=== PATIENT | male | born 1965 | race Caucasian/White ===

== ENCOUNTER → 2017-01-20 | Outpatient (CLI) | payer OTHER ==
--- NOTE | 2017-01-20 15:02 | XR ---
Cervical spine HISTORY: Painful tingling in arms, inflammatory polyneuropathy 5 views of the cervical spine Cervical vertebral bodies show preserved height, alignment, and bone mineralization. Disc spaces and prevertebral soft tissues are maintained. No significant foraminal encroachment. IMPRESSION: No significant abnormality, consider cervical MRI.
== END | disposition home or self-care (01) ==
LOC: RADXRMAIN 13:18
PROVIDERS: ATTEND Family Medicine
DX: G61.9 Inflammatory polyneuropathy, unspecified (principal)
CPT/HCPCS: 72050

== ENCOUNTER 2017-01-21 06:49 | Day surgery (SDC) | payer OTHER ==
[2017-01-16 11:17] VITALS: BMI 34.7
[~2017-01-21 06:49] MED LIST: LACTATED RINGERS 1,000 ML IV SCH
[2017-01-21] MEDS ORDERED: LIDOCAINE 1% 20 ML VIAL (10MG/ML) FOR IV START INTRADERMA ONE (07:40)
[2017-01-21 07:45] VITALS: TEMP 97.5
[2017-01-21] MEDS ORDERED: PROPOFOL 10 MG/ML 20 ML VIAL IV ONE (07:48)
[2017-01-21] MEDS ORDERED: LIDOCAINE 1% INJ 10MG/ML (20 ML MDV) ONE (07:48)
--- NOTE | 2017-01-21 07:48 | P.GSHP ---
History of Present Illness H&P Date: 01/21/17 Chief Complaint: Screening colonoscopy This a 51-year-old male from Dr. Castro. Patient presents today for screening colonoscopy. He denies any significant GI complaints. - Constitutional Constitutional: Reports as per HPI Past Medical History Past Medical History: Chest Pain / Angina, Hyperlipidemia, Hypertension, Myocardial Infarction ([place]) Additional Past Medical History / Comment(s): [place] x2 Last Myocardial Infarction Date:: 2015 History of Any Multi-Drug Resistant Organisms: None Reported Past Surgical History: Appendectomy, Heart Catheterization With Stent, Orthopedic Surgery Additional Past Surgical History / Comment(s): 3 stents placed in 2014, last heart stent 2015, tendon surgery- arm. Past Anesthesia/Blood Transfusion Reactions: No Reported Reaction Date of Last Stent Placement:: 2015 Past Psychological History: No Psychological Hx Reported Smoking Status: Former smoker Past Alcohol Use History: Occasional Additional Past Alcohol Use History / Comment(s): Quit smoking in 2000. Smoked 1 PPD x 16 yrs. Past Drug Use History: None Reported - Past Family History Mother Family Medical History: No Reported History Medications and Allergies Home Medications Medication Instructions Recorded Confirmed Type Atorvastatin [Lipitor] 80 mg PO DAILY 03/13/15 01/21/17 History Nitroglycerin Sl Tabs [Nitrostat] 0 mg SUBLINGUAL DIRECTED PRN 03/13/1501/16 History Metoprolol Tartrate [Lopressor] 25 mg PO DAILY 01/16/17 01/21/17 History Allergies Allergy/AdvReac Type Severity Reaction Status Date / Time meperidine HCl [From Demerol] Allergy Confusion Verified 01/21/17 07:30 Surgical - Exam Vital Signs Temp Pulse Resp BP Pulse Ox 97.5 F L 74 18 114/73 97 01/21/17 07:43 01/21/17 07:43 01/21/17 07:43 01/21/17 07:43 01/21/17 07:43 - General well developed, no distress - Eyes PERRL - ENT normal pinna - Neck no masses - Respiratory normal expansion - Cardiovascular Rhythm: regular - Abdomen Abdomen: soft, non tender Assessment and Plan Plan: We'll perform screening colonoscopy.
--- NOTE | 2017-01-21 08:03 | P.OP ---
Date of Procedure: 01/21/17 Preoperative Diagnosis: Screening colonoscopy Postoperative Diagnosis: Right colon polyp Procedure(s) Performed: Colonoscopy Anesthesia: MAC Surgeon: Everardo Goodrich Pathology: other (Right colon polyp) Condition: stable Disposition: PACU Description of Procedure: The patient's placed on the endoscopy table in the lateral position. He received IV sedation. Digital rectal exam was performed which revealed a few external hemorrhoids. The flexible colonoscope was then placed patient anus passed throughout the entire colon. The ileocecal valve was visualized. Cecum , ascending colon appeared normal. Near the hepatic flexure of the ascending colon there was a small polyp seen this removed the forcep. The remainder of the transverse colon descending colon and sigmoid colon appeared normal. The rectum was normal. The scope was withdrawn and the external hemorrhoids were visualized. Scope was withdrawn for patient.
[2017-01-21 08:20] VITALS: BP 128/78; PULSE 66; RESP 16
== END 2017-01-21 08:49 | disposition home or self-care (01) ==
LOC: ORWHC2ENDO 06:49
PROVIDERS: ATTEND Surgery
DX: Z12.11 Encounter for screening for malignant neoplasm of colon (principal); D12.2 Benign neoplasm of ascending colon; K64.4 Residual hemorrhoidal skin tags; E78.5 Hyperlipidemia, unspecified; I20.9 Angina pectoris, unspecified; I10 Essential (primary) hypertension; I25.2 Old myocardial infarction; Z87.891 Personal history of nicotine dependence; Z79.899 Other long term (current) drug therapy; Z88.5 Allergy status to narcotic agent
CPT/HCPCS: 88305; 45380; J2001; J2704

== ENCOUNTER 2017-01-26 14:46 | Emergency (ER) | payer OTHER ==
[2017-01-26] MEDS ORDERED: SODIUM CHLORIDE 0.9% 2,000 ML IV STA (15:01)
[2017-01-26] MEDS ORDERED: SODIUM CHLORIDE 0.9% 1,000 ML IV STA (15:01)
[2017-01-26] MEDS ORDERED: ONDANSETRON 4 MG/2 ML VIAL IVP STA (15:01)
--- NOTE | 2017-01-26 15:07 | ED ---
Nausea/Vomiting/Diarrhea HPI - General Chief complaint: Nausea/Vomiting/Diarrhea Stated complaint: feeling ill since colonoscopy Time Seen by Provider: 01/26/17 14:50 Source: patient, RN notes reviewed Mode of arrival: wheelchair Limitations: no limitations - History of Present Illness Initial comments: This is a 51-year-old male presents with complaints of headache and stuffy nose and sinuses nausea chills sweats generalized weakness lightheadedness and dizziness. He states all the symptoms started 2 days after having colonoscopy which was 5 days ago. Today after colonoscopy was fine to the symptoms began on the following day. He has had some rhinorrhea no phlegm production dry heaves he's been able to keep some fluids down but no oral intake of food for last 3 days. No overt abdominal pain. He just generally does not feel well he also suffers some body aches. He states he's had diarrhea every 15-30 minutes he states is a yellow-green jacobo color. No recent antibiotics. He did have a polyp that was removed during the colonoscopy was said to be benign. MD complaint: nausea, diarrhea - Related Data Home Medications Medication Instructions Recorded Confirmed Atorvastatin [Lipitor] 80 mg PO DAILY 03/13/15 01/26/17 Nitroglycerin Sl Tabs [Nitrostat] 0.4 mg SUBLINGUAL Q5M PRN 03/13/15 01/26/17 Metoprolol Tartrate [Lopressor] 25 mg PO DAILY 01/16/17 01/26/17 Desvenlafaxine Succinate [Pristiq] 50 mg PO DAILY 01/26/17 01/26/17 Isosorbide Mononitrate ER [Imdur] 30 mg PO DAILY 01/26/17 01/26/17 Previous Rx's Medication Instructions Recorded Clopidogrel [Plavix] 75 mg PO DAILY #30 tab 05/02/16 Lisinopril [Zestril] 10 mg PO DAILY #30 tab 05/02/16 Oseltamivir [Tamiflu] 75 mg PO Q12HR #10 cap 01/26/17 Allergies Allergy/AdvReac Type Severity Reaction Status Date / Time meperidine HCl [From Demerol] Allergy Confusion Verified 01/26/17 15:05 Review of Systems ROS Statement: Those systems with pertinent positive or pertinent negative responses have been documented in the HPI. ROS Other: All systems not noted in ROS Statement are negative. Past Medical History Past Medical History: Chest Pain / Angina, Hyperlipidemia, Hypertension, Myocardial Infarction ([place]) Additional Past Medical History / Comment(s): [place] x2 Last Myocardial Infarction Date:: 2015 History of Any Multi-Drug Resistant Organisms: None Reported Past Surgical History: Appendectomy, Heart Catheterization With Stent, Orthopedic Surgery Additional Past Surgical History / Comment(s): 3 stents placed in 2014, last heart stent 2016, tendon surgery- arm. Past Anesthesia/Blood Transfusion Reactions: No Reported Reaction Date of Last Stent Placement:: 2015 Past Psychological History: No Psychological Hx Reported Smoking Status: Former smoker Past Alcohol Use History: Occasional Additional Past Alcohol Use History / Comment(s): Quit smoking in 2000. Smoked 1 PPD x 16 yrs. Past Drug Use History: None Reported - Past Family History Mother Family Medical History: No Reported History General Exam - General Exam Comments Initial Comments: This is a well-developed well-nourished awake alert oriented 3 male Limitations: no limitations General appearance: anxious, in distress Head exam: Present: atraumatic, normocephalic, normal inspection Eye exam: Present: normal appearance, PERRL, EOMI. Absent: scleral icterus, conjunctival injection, periorbital swelling ENT exam: Present: mucous membranes dry, other (Boggy nasal mucosa) Neck exam: Present: normal inspection. Absent: tenderness, meningismus, lymphadenopathy Respiratory exam: Present: normal lung sounds bilaterally. Absent: respiratory distress, wheezes, rales, rhonchi, stridor Cardiovascular Exam: Present: normal rhythm, tachycardia, normal heart sounds. Absent: systolic murmur, diastolic murmur, rubs, gallop, clicks GI/Abdominal exam: Present: soft, normal bowel sounds. Absent: distended, tenderness, guarding, rebound, rigid Extremities exam: Present: normal inspection, full ROM, normal capillary refill. Absent: tenderness, pedal edema, joint swelling, calf tenderness Back exam: Present: normal inspection Neurological exam: Present: alert, oriented X3, CN II-XII intact Psychiatric exam: Present: normal affect, normal mood Skin exam: Present: warm, dry, intact, normal color. Absent: rash Course Vital Signs 01/26/17 01/26/17 14:49 18:40 Temperature 96.7 F L 98.7 F Pulse Rate 112 H 77 Respiratory 24 18 Rate Blood Pressure 122/84 139/83 O2 Sat by Pulse 99 100 Oximetry Medical Decision Making - Medical Decision Making Patient is feeling much improved he will be discharged he'll be placed on Tamiflu he was advised to increase his oral fluids also follow-up with his doctor and return when necessary - Lab Data Result diagrams: 01/26/17 15:12 01/26/17 15:12 Lab Results 01/26/17 01/26/17 01/26/17 Range/Units 15:12 15:12 15:12 WBC 7.5 (3.8-10.6) k/uL RBC 5.84 (4.30-5.90) m/uL Hgb 19.0 H (13.0-17.5) gm/dL Hct 56.2 H (39.0-53.0) % MCV 96.3 (80.0-100.0) fL MCH 32.6 (25.0-35.0) pg MCHC 33.9 (31.0-37.0) g/dL RDW 13.1 (11.5-15.5) % Plt Count 286 (150-450) k/uL Neutrophils % 71 % Lymphocytes % 17 % Monocytes % 8 % Eosinophils % 0 % Basophils % 1 % Neutrophils # 5.3 (1.3-7.7) k/uL Lymphocytes # 1.3 (1.0-4.8) k/uL Monocytes # 0.6 (0-1.0) k/uL Eosinophils # 0.0 (0-0.7) k/uL Basophils # 0.0 (0-0.2) k/uL Sodium 136 L (137-145) mmol/L Potassium 5.0 (3.5-5.1) mmol/L Chloride 100 (98-107) mmol/L Carbon Dioxide 18 L (22-30) mmol/L Anion Gap 18 mmol/L BUN 22 H (9-20) mg/dL Creatinine 1.82 H (0.66-1.25) mg/dL Est GFR (MDRD) Af Amer 48 (>60 ml/min/1.73 sqM) Est GFR (MDRD) Non-Af 39 (>60 ml/min/1.73 sqM) Glucose 119 H (74-99) mg/dL Calcium 9.3 (8.4-10.2) mg/dL Magnesium 2.0 (1.6-2.3) mg/dL Total Bilirubin 1.1 (0.2-1.3) mg/dL AST 78 H (17-59) U/L ALT 57 (21-72) U/L Alkaline Phosphatase 54 (38-126) U/L Total Protein 7.3 (6.3-8.2) g/dL Albumin 4.2 (3.5-5.0) g/dL Amylase 106 (30-110) U/L Lipase 187 (23-300) U/L Influenza Type A RNA Not Detected (Not Detectd) Influenza Type B (PCR) Detected H (Not Detectd) - Radiology Data Radiology results: report reviewed, image reviewed Disposition Clinical Impression: Influenza B, Dehydration, Renal insufficiency Disposition: HOME SELF-CARE Condition: Good Instructions: Acute Diarrhea (ED), Influenza (ED), Dehydration (ED), Impaired Kidney Function (ED) Prescriptions: Oseltamivir [Tamiflu] 75 mg PO Q12HR #10 cap
[2017-01-26 15:23] LABS: Basophils % (A) 1 %; CH 32.5; CHCM 33.9; Eosinophils % (A) 0 %; HCT 56.2 % (39.0-53.0); HDW 2.32; Luc # (Auto) 0.25; Luc % (Auto) 3; Lymphocytes # (A) 1.3 k/uL (1.0-4.8); Lymphocytes % (A) 17 %; MCH 32.6 pg (25.0-35.0); MCHC 33.9 g/dL (31.0-37.0); MCV 96.3 fL (80.0-100.0); Mean Platelet Volume 6.8; Monocytes # (A) 0.6 k/uL (0-1.0); Monocytes % (A) 8 %; Neutrophils # (A) 5.3 k/uL (1.3-7.7); Neutrophils % (A) 71 %; RBC 5.84 m/uL (4.30-5.90); RDW 13.1 % (11.5-15.5); WBC 7.5 k/uL (3.8-10.6); WBC (Perox) 7.62
[2017-01-26 15:35] LABS: Calcium 9.3 mg/dL (8.4-10.2); Total Bilirubin 1.1 mg/dL (0.2-1.3); Total Protein 7.3 g/dL (6.3-8.2)
--- NOTE | 2017-01-26 15:42 | XR ---
EXAMINATION TYPE: XR chest 2V DATE OF EXAM: 01/26/2017 3:38 PM COMPARISON: NONE HISTORY: Headache congestion TECHNIQUE: Frontal and lateral views of the chest are obtained. FINDINGS: Heart and mediastinum are normal. Lungs are clear. Diaphragm is normal. Bony thorax appear s normal. IMPRESSION: Normal chest
--- NOTE | 2017-01-26 15:43 | XR ---
EXAMINATION TYPE: XR KUB DATE OF EXAM: 01/26/2017 3:38 PM COMPARISON: NONE HISTORY: Malaise and body aches TECHNIQUE: 2 views FINDINGS: Bowel gas pattern is normal. There is no sign of intestinal obstruction or pneumoperitoneum . Fecal pattern is normal. There is no sign of a mass. Lung bases are clear. IMPRESSION: Nonacute abdomen.
[2017-01-26] MEDS ORDERED: OSELTAMIVIR 75 MG CAP PO STA (16:52)
[2017-01-26 18:41] VITALS: BP 139/83; RESP 18; TEMP 98.7
[2017-01-26 19:27] VITALS: PULSE 85
== END 2017-01-26 19:27 | disposition home or self-care (01) ==
LOC: EC 14:46
DX: J10.1 Influenza due to other identified influenza virus with other respiratory manifestations (principal); E86.0 Dehydration; N28.9 Disorder of kidney and ureter, unspecified; E78.5 Hyperlipidemia, unspecified; I10 Essential (primary) hypertension; Z87.891 Personal history of nicotine dependence; Z79.899 Other long term (current) drug therapy; Z88.5 Allergy status to narcotic agent; Z95.5 Presence of coronary angioplasty implant and graft
CPT/HCPCS: 99284; 96374; 96361 ×4; 36415; 80053; 82150; 83690; 83735; 85025; 87502; 71020; 74000; J2405

== ENCOUNTER → 2017-04-03 | Outpatient (CLI) | payer OTHER ==
--- NOTE | 2017-04-03 21:48 | MR ---
EXAMINATION TYPE: MR cervical spine wo con DATE OF EXAM: 04/03/2017 9:43 PM COMPARISON: NONE HISTORY: Neck pain with Numbness and Tingling in both arms sonce 2005 Multiplanar MultiSpin echo imaging of the cervical spine was performed. Comparison: none C2-C3: No evidence for degenerative disc disease. No disc bulge/herniation or protrusion. No Canal stenosis. Foramina are patent bilaterally. C3-C4: Borderline disc desiccation noted. No disc bulge/herniation or protrusion. No Canal stenosis. Foramina are patent bilaterally. C4-C5: Borderline disc desiccation noted. No disc bulge/herniation or protrusion. No Canal stenosis. Foramina are patent bilaterally. C5-C6: Borderline disc desiccation noted. No disc bulge/herniation or protrusion. No Canal stenosis. Foramina are patent bilaterally. C6-C7: No evidence for degenerative disc disease. No disc bulge/herniation or protrusion. No Canal stenosis. Foramina are patent bilaterally. C7-T1: No evidence for degenerative disc disease. No disc bulge/herniation or protrusion. No Canal stenosis. Foramina are patent bilaterally. Cervical segments are intact. Mild scattered ventral spondylosis. There is normal alignment. Cervic al spinal cord is of normal signal. Craniovertebral junction relationships are within normal limits. IMPRESSION: 1. Borderline disc desiccation with ventral spondylosis. No evidence for disc herniation or central s tenosis.
== END | disposition home or self-care (01) ==
LOC: RADMRIMAIN 21:08
PROVIDERS: ATTEND Family Medicine
DX: M47.22 Other spondylosis with radiculopathy, cervical region (principal)
CPT/HCPCS: 72141

== ENCOUNTER → 2020-01-10 | Outpatient (CLI) | payer OTHER | END | disposition home or self-care (01) | DX: M75.31 Calcific tendinitis of right shoulder (principal) ==

== ENCOUNTER → 2020-10-24 | Outpatient (CLI) | payer OTHER ==
--- NOTE | 2020-10-24 20:56 | CT ---
EXAMINATION TYPE: CT cervical spine wo con DATE OF EXAM: 10/24/2020 COMPARISON: Radiographs 01/20/2017. HISTORY: numbness down both arms, no injury CT DLP: 628 mGycm Automated exposure control for dose reduction was used. TECHNIQUE: CT scan of the cervical spine is obtained without contrast, axial images are obtained, sa gittal and coronal reformatted images are also reviewed. FINDINGS: Cervical spine is visualized in its entirety from C1 through upper thoracic levels, demonst rates satisfactory alignment without evidence of acute fracture or dislocation. There is multilevel m ild disc height narrowing with small anterior endplate osteophytes. Prevertebral soft tissue appears within normal limits. The C1-C2 articulation is within normal limits on the coronal images. IMPRESSION: Mild cervical spondylosis without acute abnormality.
== END | disposition home or self-care (01) ==
LOC: RADCTMAIN 17:09
PROVIDERS: ATTEND Family Medicine
DX: M47.812 Spondylosis without myelopathy or radiculopathy, cervical region (principal); Z91.09 Other allergy status, other than to drugs and biological substances
CPT/HCPCS: 72125

== ENCOUNTER 2020-11-30 16:22 | Observation (INO) | payer OTHER ==
[2020-11-30] MEDS ORDERED: ASPIRIN 81 MG PO STA (16:34)
[2020-11-30] MEDS ORDERED: NITROGLYCERIN OINT 1 INCH/GM PACKET TOPICAL STA (16:34)
--- NOTE | 2020-11-30 16:39 | ED ---
General Adult HPI - General Chief complaint: Chest Pain Stated complaint: Chest Pain Time Seen by Provider: 11/30/20 16:24 Source: patient, RN/MD, RN notes reviewed Mode of arrival: EMS Limitations: no limitations - History of Present Illness Initial comments: Patient is a pleasant 55-year-old male presenting to the emergency Department with complaints of chest discomfort. Onset of symptoms was a few days ago. Symptoms are waxing and waning. Symptoms do worsen with exertion. Patient has exertional dyspnea as well. No associated nausea or diaphoresis. Discomfort feels like heaviness. There is occasional mild radiation towards the left shoulder. No back pain. Symptoms are similar to previous cardiac disease stents. No leg pain or leg swelling. - Related Data Home Medications Medication Instructions Recorded Confirmed Atorvastatin [Lipitor] 80 mg PO DAILY 03/13/15 01/26/17 Nitroglycerin Sl Tabs [Nitrostat] 0.4 mg SUBLINGUAL Q5M PRN 03/13/15 01/26/17 Metoprolol Tartrate [Lopressor] 25 mg PO DAILY 01/16/17 01/26/17 Desvenlafaxine Succinate [Pristiq] 50 mg PO DAILY 01/26/17 01/26/17 Isosorbide Mononitrate ER [Imdur] 30 mg PO DAILY 01/26/17 01/26/17 Previous Rx's Medication Instructions Recorded Clopidogrel [Plavix] 75 mg PO DAILY #30 tab 05/02/16 lisinopriL [Zestril] 10 mg PO DAILY #30 tab 05/02/16 Oseltamivir [Tamiflu] 75 mg PO Q12HR #10 cap 01/26/17 Allergies Allergy/AdvReac Type Severity Reaction Status Date / Time meperidine HCl [From Demerol] Allergy Confusion Verified 11/30/20 16:31 Review of Systems ROS Statement: Those systems with pertinent positive or pertinent negative responses have been documented in the HPI. ROS Other: All systems not noted in ROS Statement are negative. Constitutional: Denies: fever Eyes: Denies: eye pain ENT: Denies: ear pain Respiratory: Reports: as per HPI. Denies: cough Cardiovascular: Reports: chest pain Endocrine: Denies: fatigue Gastrointestinal: Denies: abdominal pain Genitourinary: Denies: dysuria Musculoskeletal: Denies: back pain Skin: Denies: rash Neurological: Denies: weakness Past Medical History Past Medical History: Chest Pain / Angina, Hyperlipidemia, Hypertension, Myocardial Infarction ([place]) Additional Past Medical History / Comment(s): [place] x2 Last Myocardial Infarction Date:: 2015 History of Any Multi-Drug Resistant Organisms: None Reported Past Surgical History: Appendectomy, Heart Catheterization With Stent, Orthopedic Surgery Additional Past Surgical History / Comment(s): 3 stents placed in 2014, last heart stent 2016, tendon surgery- arm. Past Anesthesia/Blood Transfusion Reactions: No Reported Reaction Date of Last Stent Placement:: 2015 Past Psychological History: No Psychological Hx Reported Smoking Status: Vaper Past Alcohol Use History: Occasional Past Drug Use History: Marijuana - Past Family History Mother Family Medical History: No Reported History General Exam Limitations: no limitations General appearance: alert, in no apparent distress Head exam: Present: normocephalic Eye exam: Present: normal appearance Neck exam: Present: normal inspection Respiratory exam: Present: normal lung sounds bilaterally. Absent: chest wall tenderness Cardiovascular Exam: Present: regular rate, normal rhythm Expanded Peripheral pulses: 2+: Radial (R), Radial (L), Dorsalis Pedis (R), Dorsalis Pedis (L) GI/Abdominal exam: Present: soft. Absent: tenderness Extremities exam: Present: normal inspection. Absent: pedal edema, calf tenderness Neurological exam: Present: alert Psychiatric exam: Present: normal affect, normal mood Skin exam: Present: normal color Course Vital Signs 11/30/20 16:28 Temperature 98.0 F Pulse Rate 59 L Respiratory 17 Rate Blood Pressure 150/85 O2 Sat by Pulse 99 Oximetry EKG Findings - EKG Comments: EKG Findings:: Sinus bradycardia 56. AL 146. QRS 100. QT 410. QTc 395. Left axis.Inferior Q waves. No acute ST change. Medical Decision Making - Medical Decision Making Patient reevaluated and updated. Case discussed with Dr. Castro, who will admit. - Lab Data Result diagrams: 11/30/20 16:36 11/30/20 16:36 Lab Results 11/30/20 11/30/20 11/30/20 Range/Units 16:36 16:36 16:36 WBC 10.1 (3.8-10.6) k/uL RBC 4.95 (4.30-5.90) m/uL Hgb 15.5 (13.0-17.5) gm/dL Hct 46.7 (39.0-53.0) % MCV 94.4 (80.0-100.0) fL MCH 31.4 (25.0-35.0) pg MCHC 33.3 (31.0-37.0) g/dL RDW 12.2 (11.5-15.5) % Plt Count 325 (150-450) k/uL MPV 6.8 Neutrophils % 54 % Lymphocytes % 30 % Monocytes % 9 % Eosinophils % 2 % Basophils % 1 % Neutrophils # 5.5 (1.3-7.7) k/uL Lymphocytes # 3.0 (1.0-4.8) k/uL Monocytes # 0.9 (0-1.0) k/uL Eosinophils # 0.2 (0-0.7) k/uL Basophils # 0.1 (0-0.2) k/uL PT 9.4 (9.0-12.0) sec INR 0.9 (<1.2) APTT 21.9 L (22.0-30.0) sec D-Dimer 0.28 (<0.60) mg/L FEU Sodium 136 L (137-145) mmol/L Potassium 4.5 (3.5-5.1) mmol/L Chloride 103 (98-107) mmol/L Carbon Dioxide 27 (22-30) mmol/L Anion Gap 6 mmol/L BUN 11 (9-20) mg/dL Creatinine 1.18 (0.66-1.25) mg/dL Est GFR (CKD-EPI)AfAm 79 (>60 ml/min/1.73 sqM) Est GFR (CKD-EPI)NonAf 69 (>60 ml/min/1.73 sqM) Glucose 88 (74-99) mg/dL Calcium 9.8 (8.4-10.2) mg/dL Magnesium 2.2 (1.6-2.3) mg/dL Total Bilirubin 0.4 (0.2-1.3) mg/dL AST 36 (17-59) U/L ALT 43 (4-49) U/L Alkaline Phosphatase 50 (38-126) U/L Troponin I (0.000-0.034) ng/mL Total Protein 6.6 (6.3-8.2) g/dL Albumin 3.8 (3.5-5.0) g/dL 11/30/20 Range/Units 16:36 WBC (3.8-10.6) k/uL RBC (4.30-5.90) m/uL Hgb (13.0-17.5) gm/dL Hct (39.0-53.0) % MCV (80.0-100.0) fL MCH (25.0-35.0) pg MCHC (31.0-37.0) g/dL RDW (11.5-15.5) % Plt Count (150-450) k/uL MPV Neutrophils % % Lymphocytes % % Monocytes % % Eosinophils % % Basophils % % Neutrophils # (1.3-7.7) k/uL Lymphocytes # (1.0-4.8) k/uL Monocytes # (0-1.0) k/uL Eosinophils # (0-0.7) k/uL Basophils # (0-0.2) k/uL PT (9.0-12.0) sec INR (<1.2) APTT (22.0-30.0) sec D-Dimer (<0.60) mg/L FEU Sodium (137-145) mmol/L Potassium (3.5-5.1) mmol/L Chloride (98-107) mmol/L Carbon Dioxide (22-30) mmol/L Anion Gap mmol/L BUN (9-20) mg/dL Creatinine (0.66-1.25) mg/dL Est GFR (CKD-EPI)AfAm (>60 ml/min/1.73 sqM) Est GFR (CKD-EPI)NonAf (>60 ml/min/1.73 sqM) Glucose (74-99) mg/dL Calcium (8.4-10.2) mg/dL Magnesium (1.6-2.3) mg/dL Total Bilirubin (0.2-1.3) mg/dL AST (17-59) U/L ALT (4-49) U/L Alkaline Phosphatase (38-126) U/L Troponin I <0.012 (0.000-0.034) ng/mL Total Protein (6.3-8.2) g/dL Albumin (3.5-5.0) g/dL - Radiology Data Radiology results: image reviewed (Chest x-ray shows no acute process) Disposition Clinical Impression: Chest pain Disposition: ADMITTED IP TO THIS HOSP Is patient prescribed a controlled substance at d/c from ED?: No Referrals: Ortega Zavala Jr, [Primary Care Provider] - 1-2 days Decision Time: 18:04
--- NOTE | 2020-11-30 17:05 | XR ---
EXAMINATION TYPE: XR chest 2V DATE OF EXAM: 11/30/2020 COMPARISON: January 26, 2017 HISTORY: Chest pain TECHNIQUE: 2 views FINDINGS: Heart and mediastinum are normal. Lungs are clear. Diaphragm is normal. Bony thorax is inta ct. IMPRESSION: Normal chest. No change.
[2020-11-30 17:12] LABS: Basophils # (A) 0.1 k/uL (0-0.2); Basophils % (A) 1 %; Eosinophils # (A) 0.2 k/uL (0-0.7); Eosinophils % (A) 2 %; HCT 46.7 % (39.0-53.0); HGB 15.5 gm/dL (13.0-17.5); Lymphocytes % (A) 30 %; MCH 31.4 pg (25.0-35.0); MCHC 33.3 g/dL (31.0-37.0); MCV 94.4 fL (80.0-100.0); Mean Platelet Volume 6.8; Monocytes # (A) 0.9 k/uL (0-1.0); Monocytes % (A) 9 %; Neutrophils # (A) 5.5 k/uL (1.3-7.7); Neutrophils % (A) 54 %; Platelet Count 325 k/uL (150-450); RBC 4.95 m/uL (4.30-5.90); RDW 12.2 % (11.5-15.5); WBC 10.1 k/uL (3.8-10.6)
[2020-11-30 17:23] LABS: Albumin 3.8 g/dL (3.5-5.0); Calcium 9.8 mg/dL (8.4-10.2); Magnesium 2.2 mg/dL (1.6-2.3); Potassium 4.5 mmol/L (3.5-5.1); Total Bilirubin 0.4 mg/dL (0.2-1.3); Total Protein 6.6 g/dL (6.3-8.2)
[2020-11-30 17:31] LABS: D-Dimer 0.28 mg/L FEU (<0.60); INR 0.9 (<1.2); Partial Thromboplastin Time 21.9 sec (22.0-30.0); Prothrombin Time 9.4 sec (9.0-12.0)
[2020-11-30] MEDS ORDERED: NITROGLYCERIN SL TABS 0.4 MG TAB SUBLINGUAL PRN (18:05)
[2020-12-01] MEDS: NITROGLYCERIN OINT 1 INCH/GM PACKET TOPICAL SCH ×2 (01:40→06:20)
[2020-12-01 03:54] LABS: Cholesterol 131 mg/dL (<200); HDL Cholesterol 39 mg/dL (40-60); LDL Cholesterol,Calculated 57 mg/dL (0-99); Triglycerides 175 mg/dL (<150)
[2020-12-01 07:24] VITALS: RESP 16
[2020-12-01] MEDS ORDERED: lisinopriL 20 MG TAB PO SCH (09:00)
[2020-12-01] MEDS ORDERED: ATORVASTATIN 40 MG TAB PO SCH (09:00)
[2020-12-01] MEDS ORDERED: CYANOCOBALAMIN 500 MCG TAB PO SCH (09:00)
[2020-12-01] MEDS ORDERED: METOPROLOL SUCCINATE (ER) 25 MG TAB.ER.24H PO SCH (09:00)
[2020-12-01] MEDS ORDERED: ASPIRIN 325 MG TAB PO SCH (09:00)
[2020-12-01] MEDS ORDERED: ASPIRIN 81 MG PO SCH (09:00)
[2020-12-01] MEDS ORDERED: CAFFEINE CITRATE 60 MG/3 ML VIAL IV PRN (09:15)
[2020-12-01] MEDS ORDERED: AMINOPHYLLINE 500 MG/20 ML VIAL IV PRN (09:15)
[2020-12-01] MEDS ORDERED: REGADENOSON 0.4 MG/5 ML SYRINGE IV PRN (09:15)
--- NOTE | 2020-12-01 10:00 | ECHOF ---
Referral Reason:chest pain MEASUREMENTS -------- HEIGHT: 167.6 cm WEIGHT: 101.6 kg BP: 129/62 RVIDd: 3.4 cm (< 3.3) IVSd: 1.4 cm (0.6 - 1.1) LVIDd: 4.5 cm (3.9 - 5.3) LVPWd: 1.3 cm (0.6 - 1.1) IVSs: 2.0 cm LVIDs: 3.9 cm LVPWs: 1.4 cm LA Diam: 3.5 cm (2.7 - 3.8) LAESV Index (A-L): 30.92 ml/m Ao Diam: 3.3 cm (2.0 - 3.7) AV Cusp: 2.0 cm (1.5 - 2.6) MV EXCURSION: 15.965 mm (> 18.000) MV EF SLOPE: 60 mm/s (70 - 150) EPSS: 1.6 cm MV E Ronak: 1.06 m/s MV DecT: 182 ms MV A Ronak: 0.86 m/s MV E/A Ratio: 1.22 FINDINGS -------- Sinus rhythm. This was a technically adequate study. The left ventricular size is normal. There is moderate concentric left ventricular hypertrophy. O verall left ventricular systolic function is moderately impaired with, an EF between 35 - 40 %. Bas al lateral LV wall motion is hypokinetic. Basal posterior LV wall motion is hypokinetic. Basal inferior LV wall motion is hypokinetic. Mid inferior LV wall motion is hypokinetic. The right ventricle is mildly enlarged. LA is midly dilated 29-33ml/m2. The right atrium is normal in size. Interatrial and interventricular septum intact. The aortic valve is trileaflet and appears structurally normal. Mild mitral regurgitation is present. The tricuspid valve appears structurally normal. There is no pulmonic regurgitation present. The aortic root size is normal. IVC Not well visulized. There is no pericardial effusion. CONCLUSIONS -------- 1. The left ventricular size is normal. 2. There is moderate concentric left ventricular hypertrophy. 3. Overall left ventricular systolic function is moderately impaired with, an EF between 35 - 40 %. 4. Basal lateral LV wall motion is hypokinetic. 5. Basal posterior LV wall motion is hypokinetic. 6. Basal inferior LV wall motion is hypokinetic. 7. Mid inferior LV wall motion is hypokinetic. 8. The right ventricle is mildly enlarged. 9. LA is midly dilated 29-33ml/m2. 10. Mild mitral regurgitation is present. 11. There is no pericardial effusion. CLOCKSMITH: Rosa Lorenzana RDCS
[2020-12-01] MEDS ORDERED: PANTOPRAZOLE 40 MG/10 ML VIAL IVP SCH (11:15)
--- NOTE | 2020-12-01 11:38 | P.CRDCN ---
History of Present Illness Consult date: 12/01/20 History of present illness: CHIEF COMPLAINT: Chest pain HISTORY OF PRESENT ILLNESS: This is a 55-year-old male with a past medical history significant for hypertension, hyperlipidemia, coronary artery disease with previous PCI. Patient states he has not followed with a sales coordinator in a few years. We have been asked to see the patient in consultation for chest pain. Patient underwent cardiac cath in [address] Shilo Hunter revealing restenotic lesion in the distal part of the circumflex. Patient underwent angioplasty and stenting of the distal circumflex lesion. Patient reports he began having chest pain about 3 days ago. He states the pain has been constant since that time. He reports that the pain feels like a heavy pressure. He denies any radiation of the pain. He denies shortness of breath. He states the pain is worse with movement and any exertion. Denies tenderness of chest wall with palpation. DIAGNOSTICS: EKG reveals sinus bradycardia with T-wave inversions inferiorly Chest xray negative for acute process Laboratory data: WBC 10.1. Hemoglobin 15.5. Platelet count 325. D-dimer 0.28. Sodium 136. Potassium 4.5. BUN 11. Creatinine 1.18. Magnesium 2.2. Current home cardiac medications include lisinopril 20 mg daily, metoprolol 25 mg daily, atorvastatin 40 mg daily, and aspirin 81 mg daily REVIEW OF SYSTEMS: At the time of my exam: CONSTITUTIONAL: Denies fever or chills. HEENT: Denies blurred vision, vision changes, or eye pain. Denies hemoptysis CARDIOVASCULAR: Denies chest pain, orthopnea, PND or palpitations RESPIRATORY: No shortness of breath. GASTROINTESTINAL: Denies abdominal pain. Denies nausea or vomiting. HEMATOLOGIC: Denies bleeding disorders. GENITOURINARY: Denies any blood in urine. SKIN: Denies pruitis. Denies rash. PHYSICAL EXAM: VITAL SIGNS: Reviewed. GENERAL: Well-developed in no acute distress. HEENT: Head is normocephalic. Pupils are equal, round. Sclerae anicteric. Mucous membranes of the mouth are moist. Neck supple. No JVD or thyromegaly LUNGS: Respirations even and unlabored. Lungs essentially clear to auscultation bilaterally. HEART: Regular rate and rhythm. S1 and S2 heard. ABDOMEN: Soft. Nondistended. Nontender. EXTREMITIES: Normal range of motion. No clubbing or cyanosis. Peripheral pulses intact. No lower extremity edema NEUROLOGIC: Awake and alert. Oriented x 3. ASSESSMENT: Chest pain, troponin negative x 3 Coronary artery disease with previous PCI to circumflex Hypertension Hyperlipidemia Former nicotine dependence Marijuana use PLAN: An acute coronary event has been ruled out Resume home cardiac medications Obtain 2-D echo to assess cardiac structure and function Patient to undergo Lexiscan stress test today Further recommendations pending patient's course Nurse practitioner note has been reviewed by physician. Signing provider agrees with the documented findings, assessment, and plan of care. Past Medical History Past Medical History: Chest Pain / Angina, Hyperlipidemia, Hypertension, Myocardial Infarction ([place]) Additional Past Medical History / Comment(s): [place] x2 Last Myocardial Infarction Date:: 2015 History of Any Multi-Drug Resistant Organisms: None Reported Past Surgical History: Appendectomy, Heart Catheterization With Stent, Orthopedic Surgery Additional Past Surgical History / Comment(s): 3 stents placed in 2014, last heart stent 2015, tendon surgery- arm. Past Anesthesia/Blood Transfusion Reactions: No Reported Reaction Date of Last Stent Placement:: 2015 Past Psychological History: No Psychological Hx Reported Smoking Status: Vaper Past Alcohol Use History: Occasional Additional Past Alcohol Use History / Comment(s): Quit smoking in 2000. Smoked 1 PPD x 16 yrs. Past Drug Use History: Marijuana - Past Family History Mother Family Medical History: No Reported History Medications and Allergies Home Medications Medication Instructions Recorded Confirmed Type Aspirin EC [Ecotrin Low Dose] 81 mg PO DAILY 11/30/20 11/30/20 History Atorvastatin Calcium [Lipitor] 40 mg PO DAILY 11/30/20 11/30/20 History Cyanocobalamin (Vitamin B-12) 1,000 mcg PO DAILY 11/30/20 11/30/20 History [Vitamin B-12] Metoprolol Succinate (ER) [Toprol 25 mg PO DAILY 11/30/20 11/30/20 History Xl] lisinopriL [Prinivil] 20 mg PO DAILY 11/30/20 11/30/20 History Allergies Allergy/AdvReac Type Severity Reaction Status Date / Time meperidine HCl [From Demerol] Allergy Confusion Verified 11/30/20 18:25 Physical Exam Vitals: Vital Signs Temp Pulse Pulse Resp BP BP Pulse Ox 12/01/20 07:23 97.7 F 57 L 16 173/95 98 12/01/20 02:00 97.4 F L 72 18 129/62 96 11/30/20 20:43 97.5 F L 59 L 18 166/83 98 11/30/20 18:07 62 18 137/76 95 11/30/20 16:28 98.0 F 59 L 17 150/85 99 Intake and Output 11/30/20 12/01/20 12/01/20 22:59 06:59 14:59 Other: # Voids 2 Weight 101.605 kg Results 11/30/20 16:36 11/30/20 16:36 Cardiac Enzymes 11/30/20 11/30/20 11/30/20 Range/Units 16:36 16:36 18:56 AST 36 (17-59) U/L Troponin I <0.012 <0.012 (0.000-0.034) ng/mL 11/30/20 Range/Units 22:50 AST (17-59) U/L Troponin I <0.012 (0.000-0.034) ng/mL Coagulation 11/30/20 Range/Units 16:36 PT 9.4 (9.0-12.0) sec APTT 21.9 L (22.0-30.0) sec Lipids 11/30/20 Range/Units 16:36 Triglycerides 175 H (<150) mg/dL Cholesterol 131 (<200) mg/dL HDL Cholesterol 39 L (40-60) mg/dL CBC 11/30/20 Range/Units 16:36 WBC 10.1 (3.8-10.6) k/uL RBC 4.95 (4.30-5.90) m/uL Hgb 15.5 (13.0-17.5) gm/dL Hct 46.7 (39.0-53.0) % Plt Count 325 (150-450) k/uL Comprehensive Metabolic Panel 11/30/20 Range/Units 16:36 Sodium 136 L (137-145) mmol/L Potassium 4.5 (3.5-5.1) mmol/L Chloride 103 (98-107) mmol/L Carbon Dioxide 27 (22-30) mmol/L BUN 11 (9-20) mg/dL Creatinine 1.18 (0.66-1.25) mg/dL Glucose 88 (74-99) mg/dL Calcium 9.8 (8.4-10.2) mg/dL AST 36 (17-59) U/L ALT 43 (4-49) U/L Alkaline Phosphatase 50 (38-126) U/L Total Protein 6.6 (6.3-8.2) g/dL Albumin 3.8 (3.5-5.0) g/dL Current Medications Generic Name Dose Route Start Last Admin Trade Name Freq PRN Reason Stop Dose Admin Aminophylline 100 mg 12/01/20 09:15 Aminophylline 500 Mg/20 Ml Vial IV 12/01/20 13:16 ONCE PRN Patient Response Aspirin 81 mg 12/01/20 09:00 12/01/20 08:14 Aspirin 81 Mg PO Not Given DAILY TRAVON Atorvastatin Calcium 40 mg 12/01/20 09:00 12/01/20 08:14 Atorvastatin 40 Mg Tab PO 40 mg DAILY TRAVON Administration Caffeine Citrate 60 mg 12/01/20 09:15 Caffeine Citrate 60 Mg/3 Ml Vial IV 12/01/20 13:16 ONCE PRN Patient Response Cyanocobalamin 1,000 mcg 12/01/20 09:00 12/01/20 08:14 Cyanocobalamin 500 Mcg Tab PO 1,000 mcg DAILY TRAVON Administration Lisinopril 20 mg 12/01/20 09:00 12/01/20 08:14 Lisinopril 20 Mg Tab PO 20 mg DAILY TRAVON Administration Metoprolol Succinate 25 mg 12/01/20 09:00 Metoprolol Succinate (Er) 25 Mg Tab.Er.24h PO DAILY TRAVON Nitroglycerin 0.4 mg 11/30/20 18:05 Nitroglycerin Sl Tabs 0.4 Mg Tab SUBLINGUAL Q5M PRN Chest Pain Pantoprazole Sodium 40 mg 12/01/20 11:15 Pantoprazole 40 Mg/10 Ml Vial IVP DAILY TRAVON Regadenoson 0.4 mg 12/01/20 09:15 Regadenoson 0.4 Mg/5 Ml Syringe IV 12/01/20 13:16 ONCE PRN Per Protocol Sodium Chloride 10 ml 11/30/20 21:00 12/01/20 08:14 Sodium Chloride 0.9% Flush 10 Ml Syringe IV 10 ml BID TRAVON Administration Intake and Output 11/30/20 12/01/20 12/01/20 22:59 06:59 14:59 Other: # Voids 2 Weight 101.605 kg 11/30/20 16:36 11/30/20 16:36
[2020-12-01] MEDS ORDERED: PANTOPRAZOLE 40 MG TABLET PO SCH (13:45)
--- NOTE | 2020-12-01 14:22 | P.STRESS ---
- Stress Test Note Stress Test Results/Findings: Exam Performed: NM stress lexiscan cardiolite Exam Date: 12/01/20 Reason for Exam: CHEST PAIN Height: 5 ft 6 in Weight: 101.6 kg Protocol: LEXISCAN Stage: NA Duration of Exercise: NA Resting Heart Rate: 63 Resting Blood Pressure: 153/95 Maximum Achieved Heart Rate: 93 Maximum Achieved Blood Pressure: 189/102 85% PMHR: 139 100% PMHR: 164 METS: NA Technologist Comment: Stress Test Results/Findings: This is a 55-year-old male with history of hypertension, hypercholesteremia, family history of ischemic heart disease being evaluated for chest pain and shortness of breath. Stress data: Baseline EKG showed sinus rhythm with normal CT interval and QRS duration with nonspecific T-wave changes in inferolateral leads. A standard dose of Lexiscan was infused EKGs continued to show the same changes without any significant deviation from the baseline. Final impression: #1. Nondiagnostic Lexiscan stress test because of baseline changes. #2. Report on echo images to be provided by the radiologist.
--- NOTE | 2020-12-01 14:46 | NM ---
EXAMINATION TYPE: NM stress lexiscan cardiolite DATE OF EXAM: 12/01/2020 COMPARISON: NONE HISTORY: Chest pain TECHNIQUE: After the intravenous administration of 11.1 mCi Tc 99m Sestamibi - Cardiolite resting SP ECT images acquired 45 minutes post injection. The patient received 0.4mg Lexiscan, 25.1 mCi Tc 99m Sestamibi - Stress images obtained [address] injection FINDINGS: Review of stress and rest SPECT images demonstrates decreased perfusion on stress and rest images inv olving the inferior wall left ventricle extending towards the inferolateral wall, inferior septal reg ion, on stress images there is some decreased uptake along the inferolateral left ventricular wall wh ich is better perfused on rest images. Gated analysis shows paradoxical inferior left ventricular wa ll motion with an estimated left ventricular ejection fraction of 47 %. IMPRESSION: Consider echocardiographic correlation for wall motion, low ejection fraction. Pharmacologic induced shiv-infarct left ventricular myocardial ischemia.
[2020-12-01 15:06] VITALS: BP 179/95; PULSE 67; TEMP 98.2
--- NOTE | 2020-12-01 16:02 | EST ---
Stress Test Results/Findings: Exam Performed: NM stress lexiscan cardiolite Exam Date: 12/01/20 Reason for Exam: CHEST PAIN Height: 5 ft 6 in Weight: 101.6 kg Protocol: LEXISCAN Stage: NA Duration of Exercise: NA Resting Heart Rate: 63 Resting Blood Pressure: 153/95 Maximum Achieved Heart Rate: 93 Maximum Achieved Blood Pressure: 189/102 85% PMHR: 139 100% PMHR: 164 METS: NA Technologist Comment: Stress Test Results/Findings: This is a 55-year-old male with history of hypertension, hypercholesteremia, family history of ischemic heart disease being evaluated for chest pain and shortness of breath. Stress data: Baseline EKG showed sinus rhythm with normal PA interval and QRS duration with nonspecific T-wave changes in inferolateral leads. A standard dose of Lexiscan was infused EKGs continued to show the same changes without any significant deviation from the baseline. Final impression: #1. Nondiagnostic Lexiscan stress test because of baseline changes. #2. Report on echo images to be provided by the radiologist. SAMMY
--- NOTE | 2020-12-01 16:18 | P.HPIM ---
History of Present Illness H&P Date: 12/01/20 Chief Complaint: Chest pain History and Physical and Discharge Summary This is a 55-year-old gentleman with past medical history of [place] X2, cardiac stents, hyperlipidemia, hypertension, current Vaper, prior nicotine dependence, prior marijuana use, occasional alcohol use and multiple other medical issues presented to the ER with complaints of left-sided chest heaviness radiating up to left shoulder accompanied by a increased shortness of breath worsened with exertion, lasting for 3 days. Denies diaphoresis, nausea vomiting or diarrhea. Denies lightheadedness, dizziness or focal deficits. Denies back pain. EKG re ported sinus bradycardia, inferior infarct age undetermined, troponins negative 3. Triglycerides 175, cholesterol 131, LDL 57, HDL 39. Hematology, CMP unremarkable d-dimer 0.28. Chest x-ray reported normal chest, no change. Echo reporting moderate concentric left ventricular hypertrophy, moderately impaired LV function with EF 35-40% hypokinetic basal lateral, posterior, inferior LV, mild inferior LV, mild mitral regurgitation. Evaluated by cardiology scheduled for Lexiscan stress test. Review of Systems ROS Statement: Those systems with pertinent positive or pertinent negative responses have been documented in the HPI. ROS Other: All systems not noted in ROS Statement are negative. Past Medical History Past Medical History: Chest Pain / Angina, Hyperlipidemia, Hypertension, Myocardial Infarction ([place]) Additional Past Medical History / Comment(s): [place] x2 Last Myocardial Infarction Date:: 2015 History of Any Multi-Drug Resistant Organisms: None Reported Past Surgical History: Appendectomy, Heart Catheterization With Stent, Orthopedic Surgery Additional Past Surgical History / Comment(s): 3 stents placed in 2014, last heart stent 2016, tendon surgery- arm. Past Anesthesia/Blood Transfusion Reactions: No Reported Reaction Date of Last Stent Placement:: 2015 Past Psychological History: No Psychological Hx Reported Smoking Status: Vaper Past Alcohol Use History: Occasional Additional Past Alcohol Use History / Comment(s): Quit smoking in 2000. Smoked 1 PPD x 16 yrs. Past Drug Use History: Marijuana - Past Family History Mother Family Medical History: No Reported History Medications and Allergies Home Medications Medication Instructions Recorded Confirmed Type Aspirin EC [Ecotrin Low Dose] 81 mg PO DAILY 11/30/20 11/30/20 History Atorvastatin Calcium [Lipitor] 40 mg PO DAILY 11/30/20 11/30/20 History Cyanocobalamin (Vitamin B-12) 1,000 mcg PO DAILY 11/30/20 11/30/20 History [Vitamin B-12] Metoprolol Succinate (ER) [Toprol 25 mg PO DAILY 11/30/20 11/30/20 History Xl] lisinopriL [Prinivil] 20 mg PO DAILY 11/30/20 11/30/20 History Allergies Allergy/AdvReac Type Severity Reaction Status Date / Time meperidine HCl [From Demerol] Allergy Confusion Verified 11/30/20 18:25 Physical Exam Vitals: Vital Signs Temp Pulse Pulse Resp BP BP Pulse Ox 12/01/20 14:00 98.2 F 67 16 179/95 99 12/01/20 07:23 97.7 F 57 L 16 173/95 98 12/01/20 02:00 97.4 F L 72 18 129/62 96 11/30/20 20:43 97.5 F L 59 L 18 166/83 98 11/30/20 18:07 62 18 137/76 95 11/30/20 16:28 98.0 F 59 L 17 150/85 99 Intake and Output 12/01/20 12/01/20 12/01/20 06:59 14:59 22:59 Other: # Voids 2 Weight 101.6 kg PHYSICAL EXAM: VITAL SIGNS: As above GENERAL: Sitting up in bed, no acute distress HEENT: Conjunctivae normal. eyes normal. NECK: No JVD. No thyroid enlargement. No LNs CARDIOVASCULAR: S1, S2 regular.. No murmur RESPIRATION: Breath sounds diminished in the bases. No rhonchi or crackles. No bronchial breathing. ABDOMEN: Soft, nontender . No guarding. no masses palpable. No ascites, No hepatosplenomegaly.Bowel sounds heard. LEGS: No edema. no swelling PSYCHIATRY: Alert and oriented X3, mood and affect normal. NERVOUS SYSTEM: Cranial N 2-12 grossly normal. Moves all 4 limbs. No focal deficits. Strength and sensation grossly intact.. Skin: no lesions, no rash Lymphatic system. No LN neck axilla. Results CBC & Chem 7: 11/30/20 16:36 11/30/20 16:36 Labs: Abnormal Lab Results - Last 24 Hours (Table) 11/30/20 11/30/20 11/30/20 Range/Units 16:36 16:36 16:36 APTT 21.9 L (22.0-30.0) sec Sodium 136 L (137-145) mmol/L Triglycerides 175 H (<150) mg/dL HDL Cholesterol 39 L (40-60) mg/dL Thrombosis Risk Factor Assmnt - Choose All That Apply Each Factor Represents 1 point: Obesity (BMI >25) Other Risk Factors: No Other congenital or acquired thrombophilia - If yes, enter type in comment: No Thrombosis Risk Factor Assessment Total Risk Factor Score: 1 Thrombosis Risk Factor Assessment Level: Low Risk Assessment and Plan Assessment: Chest pain, rule out acute coronary syndrome in a patient with prior history of CAD, EF 35-40% History of LA 2 and prior stents Hypertension Hyperlipidemia Former nicotine dependence Marijuana use Current Vaper Plan: Continue on current medication regime ,monitoring and symptomatic treatment. Stress test pending. Patient will possibly be discharged home today in stable condition with guarded prognosis pending stress test results, final DC recommendations and clearance from cardiology. Discharge Medication List Aspirin EC [Ecotrin Low Dose] 81 mg PO DAILY 11/30/20 [History] Atorvastatin Calcium [Lipitor] 40 mg PO DAILY 11/30/20 [History] Cyanocobalamin (Vitamin B-12) [Vitamin B-12] 1,000 mcg PO DAILY 11/30/20 [History] Metoprolol Succinate (ER) [Toprol Xl] 25 mg PO DAILY 11/30/20 [History] lisinopriL [Prinivil] 20 mg PO DAILY 11/30/20 [History] The impression and plan of care has been dictated as directed. : I performed a history and examination of this patient, discussed the same with the dictator. I agree with the dictator's note ,documented as a scribe. Any additional findings or plans will be noted.
== END 2020-12-01 17:55 | disposition home or self-care (01) ==
LOC: EC 16:22 → 6NMEDSUR 18:05
PROVIDERS: ADMIT Family Medicine; ATTEND Family Medicine
DX: R07.89 Other chest pain (principal); R06.09 Other forms of dyspnea; R06.02 Shortness of breath; R00.1 Bradycardia, unspecified; E66.9 Obesity, unspecified; Z68.36 Body mass index [BMI] 36.0-36.9, adult; E78.5 Hyperlipidemia, unspecified; I25.2 Old myocardial infarction; E78.00 Pure hypercholesterolemia, unspecified; I11.9 Hypertensive heart disease without heart failure; F17.290 Nicotine dependence, other tobacco product, uncomplicated; I25.10 Atherosclerotic heart disease of native coronary artery without angina pectoris; Z88.5 Allergy status to narcotic agent; Z87.891 Personal history of nicotine dependence; Z95.5 Presence of coronary angioplasty implant and graft; Z90.49 Acquired absence of other specified parts of digestive tract; Z79.899 Other long term (current) drug therapy; Z79.02 Long term (current) use of antithrombotics/antiplatelets; Z79.82 Long term (current) use of aspirin; Z82.49 Family history of ischemic heart disease and other diseases of the circulatory system
CPT/HCPCS: 93005 ×2; 99285; 36415; 93017; 93306; 85379; 80061; 80053; 83735; 84484; 85025; 85610; 85730; 87635; 71046; 78452; G0378 ×2; A9500; J2785

== ENCOUNTER → 2021-01-08 | Outpatient (CLI) | payer OTHER ==
--- NOTE | 2021-01-08 15:26 | MR ---
MRI CERVICAL SPINE: CLINICAL HISTORY: Cervical region radiculopathy per order. Bilateral Hand and arm numbness for years. TECHNIQUE: Multiplanar, multisequence imaging of the cervical spine is performed without IV contrast. COMPARISON: MRI cervical spine April 03, 2017. CT cervical spine October 24, 2020 FINDINGS: Coronal images show levoconvex scoliotic curvature persisting centered near cervicothoracic junction. Sagittal images of the cervical spine show the craniocervical junction to remain within no rmal limits. The cervical and upper thoracic spinal cord remains normal in course, caliber, and sign al. Vertebral alignment is stable and satisfactory on sagittal images. The vertebral body and intra vertebral disk heights remain within normal limits. Mild multilevel anterior spurring. The bone marro w signal intensity remains within normal limits. Axial images show C2-C3 and C3-C4 levels to remain within normal limits. Axial images at C4-C5 level shows stable mild broad disc bulge minimally effacing anterior thecal sac , patent bilateral neural foramina, similar finding noted at C5-C6 level. No significant change from prior studies. Axial images at C6-C7 and C7-T1 levels remain within normal limits. IMPRESSION: Mild degenerative changes mid cervical spine, no significant degenerative progression fro m 2017 MRI.
== END ==
LOC: RADMRIMAIN 14:42
PROVIDERS: ATTEND Family Medicine
DX: M47.22 Other spondylosis with radiculopathy, cervical region (principal)
CPT/HCPCS: 72141

== ENCOUNTER → 2023-12-26 | Outpatient (CLI) | payer OTHER ==
--- NOTE | 2023-12-26 16:04 | US ---
EXAMINATION TYPE: US carotid duplex BILAT DATE OF EXAM: 12/26/2023 COMPARISON: NONE CLINICAL INDICATION: Male, 58 years old with history of I10 ESSENTIAL HYPERTENSION I25.10 CORONARY AR ANGELICA; Numbness to bilateral arms, vertigo, headaches, and double vision. Hx HTN TECHNIQUE: Carotid duplex ultrasound examination. Indirect Doppler criteria was utilized. FINDINGS: EXAM MEASUREMENTS: RIGHT: Peak Systolic Velocity (PSV) cm/sec ----- Right CCA: 97 ----- Right ICA: 90 ----- Right ECA: 161 ICA/CCA ratio: 0.9 RIGHT: End Diastole cm/sec ----- Right CCA: 26 ----- Right ICA: 30 ----- Right ECA: 25 LEFT: Peak Systolic Velocity (PSV) cm/sec ----- Left CCA: 88 ----- Left ICA: 90 ----- Left ECA: 111 ICA/CCA ratio: 1.0 LEFT: End Diastole cm/sec ----- Left CCA: 26 ----- Left ICA: 26 ----- Left ECA: 22 VERTEBRALS (direction of flow): Right Vertebral: Antegrade Left Vertebral: Antegrade Rhythm: Normal CARPENTER GENERAL NOTES: Intimal thickening noted bilaterally, Calcification within bilateral ICAs, and luis armando vated velocities within the right ECA IMPRESSION: Intimal thickening with some mild atheromatous plaque in the carotid bifurcations bilaterally. No sig nificant flow-limiting stenosis internal carotid arteries. Criteria for Assigning % of Stenosis / Diameter reduction (Estimation based on the indirect measurements of the internal carotid artery velocities (ICA PSV). 1. Normal (no stenosis)=ICA PSV < 125 cm/s: ratio < 2.0: ICA EDV<40 cm/s. 2. Less than 50% stenosis=ICA PSV < 125 cm/s: ratio < 2.0: ICA EDV<40 cm/s. 3. 50 to 69% stenosis=ICA PSV of 125 to 230 cm/s: ration 2.0 ? 4.0: ICA EDV 40-100 cm/s. 4. Greater than 70% stenosis to near occlusion= ICA PSV > 230 cm/s: ratio > 4.0: ICA EDV > 100 cm/s. 5. Near occlusion= ICA PSV velocities may be low or undetectable: variable ratio and ICA EDV. 6. Total occlusion=unable to detect flow.
== END | disposition home or self-care (01) ==
LOC: RADUSWWP 12:42
PROVIDERS: ATTEND Family Medicine
DX: I65.23 Occlusion and stenosis of bilateral carotid arteries (principal); I10 Essential (primary) hypertension; I25.10 Atherosclerotic heart disease of native coronary artery without angina pectoris; R51.9 Headache, unspecified; R42 Dizziness and giddiness; R20.0 Anesthesia of skin; H53.2 Diplopia
CPT/HCPCS: 93880

== ENCOUNTER → 2024-07-02 | Outpatient (CLI) | payer OTHER ==
[2024-07-02 18:14] LABS: HCT 44.8 % (39.6-50.0); HGB 15.2 g/dL (13.0-17.0); MCH 32.1 pg (27.0-32.0); MCHC 33.9 g/dL (32.0-37.0); MCV 94.5 FL (80.0-97.0); Mean Platelet Volume 10.2 FL (9.5-12.2); NRBC Per 100 WBC 0 X 10*3/uL (0.00-0.01); Platelet Count 278 X 10*3/uL (140-440); RBC 4.74 X 10*6/uL (4.40-5.60); RDW 12.4 % (11.5-14.5); WBC 11.72 X 10*3/uL (4.50-10.00)
[2024-07-02 20:35] LABS: ALT 87 U/L (10-49); AST 52 U/L (14-35); Albumin 4.3 g/dL (3.8-4.9); Albumin/Globulin Ratio 1.79 Ratio (1.60-3.17); Alkaline Phosphatase 62 U/L (41-126); BUN/Creat Ratio 9.27 Ratio (12.00-20.00); Blood Urea Nitrogen 10.2 mg/dL (9.0-27.0); Calcium 9.3 mg/dL (8.7-10.3); Carbon Dioxide 20.3 mmol/L (21.6-31.8); Chloride 105 mmol/L (96-109); Chol/HDL Ratio 2.68 Ratio; Globulin 2.4 g/dL (1.6-3.3); Glucose 95 mg/dL (70-110); LDL Cholesterol,Calculated 54.6 mg/dL (0.0-131.0); Potassium 4.4 mmol/L (3.5-5.5); Sodium 139 mmol/L (135-145); Total Bilirubin 0.6 mg/dL (0.3-1.2); Total Protein 6.7 g/dL (6.2-8.2)
[2024-07-02 22:04] LABS: NT-Pro-B-Type Natriuretic Pept 713 pg/mL (0-125)
== END | disposition home or self-care (01) ==
LOC: LABWHC1 13:59
PROVIDERS: ATTEND Student in an Organized Health Care Education/Training Program
DX: Z13.6 Encounter for screening for cardiovascular disorders (principal); D72.9 Disorder of white blood cells, unspecified; E11.9 Type 2 diabetes mellitus without complications; I50.9 Heart failure, unspecified; E78.5 Hyperlipidemia, unspecified; E03.9 Hypothyroidism, unspecified; R79.89 Other specified abnormal findings of blood chemistry
CPT/HCPCS: 36415; 80053; 80061; 83036; 83880; 85027; 86141